=== PATIENT | female | born 1960 ===

== ENCOUNTER 2018-12-29 10:59 | Emergency (ER) | payer OTHER ==
[~2018-12-29] VITALS: Ht 162.6 cm; Wt 98.0 kg
[~2018-12-29 10:59] MED LIST: FIORICET 50-301 EACH PO
[2018-12-29] MEDS ORDERED: LISINOPRIL2.5 MG (13:25)
[2018-12-29] MEDS ORDERED: TRANDATE300 MG (13:25)
[2018-12-29] MEDS ORDERED: FORTAMET500 MG (13:26)
[2018-12-29] MEDS ORDERED: CYMBALTA60 MG (13:26)
[2018-12-29] MEDS ORDERED: SIMVASTATIN5 MG (13:26)
== END 2018-12-29 17:32 | disposition home or self-care (01) ==
LOC: ER 10:59
DX: R51 Headache (principal)